=== PATIENT | female | born 1990 | race Caucasian/White ===

== ENCOUNTER 2019-03-24 15:06 | Emergency (ER) | payer OTHER ==
[2019-03-24 15:17] VITALS: BP 119/84; TEMP 99.1
[2019-03-24] MEDS ORDERED: IPRATROPIUM-ALBUTEROL 3 ML NEB INHALATION STA (15:39)
--- NOTE | 2019-03-24 15:47 | ED ---
URI HPI - General Chief Complaint: Upper Respiratory Infection Stated Complaint: Cough Time Seen by Provider: 03/24/19 15:11 Source: patient, RN notes reviewed Mode of arrival: ambulatory Limitations: no limitations - History of Present Illness Initial Comments: This is a 28-year-old female presents emergency Department chief complaint cough, congestion over the last 3 weeks. Patient states that she's had increasing shortness breath, wheezing. She states he usually comes along with a coughing fit. Patient doesn't that she is a daily smoker has no history of asthma. Denies any fever, chills, ear pain, sore throat she hasn't missed a mild nasal congestion. - Related Data Previous Rx's Medication Instructions Recorded Albuterol Sulfate [Proair Hfa] 1 - 2 puff INHALATION Q4HR PRN #1 03/24/19 inhaler Azithromycin [Zithromax Z-pack] 0 mg PO DIRECTED #1 pack 03/24/19 predniSONE 50 mg PO DAILY #5 tab 03/24/19 Allergies Allergy/AdvReac Type Severity Reaction Status Date / Time No Known Allergies Allergy Verified 03/24/19 15:13 Review of Systems ROS Statement: Those systems with pertinent positive or pertinent negative responses have been documented in the HPI. ROS Other: All systems not noted in ROS Statement are negative. Past Medical History Past Medical History: No Reported History History of Any Multi-Drug Resistant Organisms: MRSA Date of last positivie culture/infection: 2019 MDRO Source:: face Past Surgical History: No Surgical Hx Reported Past Psychological History: Anxiety, Depression Smoking Status: Current every day smoker Past Alcohol Use History: None Reported Past Drug Use History: None Reported General Exam Limitations: no limitations General appearance: alert, in no apparent distress Head exam: Present: atraumatic, normocephalic, normal inspection Eye exam: Present: normal appearance, PERRL, EOMI. Absent: scleral icterus, conjunctival injection, periorbital swelling ENT exam: Present: mucous membranes moist, TM's normal bilaterally, normal external ear exam. Absent: normal exam, normal oropharynx (Mild erythema) Neck exam: Present: normal inspection, full ROM. Absent: tenderness, meningismus, lymphadenopathy Respiratory exam: Present: wheezes. Absent: normal lung sounds bilaterally, respiratory distress, rales, rhonchi, stridor Cardiovascular Exam: Present: regular rate, normal rhythm, normal heart sounds. Absent: systolic murmur, diastolic murmur, rubs, gallop, clicks GI/Abdominal exam: Present: soft, normal bowel sounds. Absent: distended, tenderness, guarding, rebound, rigid Neurological exam: Present: alert, oriented X3 Skin exam: Present: warm, dry, intact, normal color. Absent: rash Course Vital Signs 03/24/19 15:14 Temperature 99.1 F Pulse Rate 78 Respiratory 18 Rate Blood Pressure 119/84 O2 Sat by Pulse 100 Oximetry Medical Decision Making - Medical Decision Making Chest x-rays unremarkable. Patient does have mild wheezing and is a smoker. Patient we treated for acute bronchitis. I counseled the patient for smoking cessation for greater than 3 minutes. Patient was discharged in stable condition with follow-up with PCP Disposition Clinical Impression: Acute bronchitis Disposition: HOME SELF-CARE Condition: Stable Instructions (If sedation given, give patient instructions): Acute Bronchitis (ED) Additional Instructions: Please return to the Emergency Department if symptoms worsen or any other concerns. Prescriptions: predniSONE 50 mg PO DAILY #5 tab Albuterol Sulfate [Proair Hfa] 1 - 2 puff INHALATION Q4HR PRN #1 inhaler PRN Reason: difficulty in breathing Azithromycin [Zithromax Z-pack] 0 mg PO DIRECTED #1 pack Is patient prescribed a controlled substance at d/c from ED?: No Referrals: None,Stated [Primary Care Provider] - 1-2 days Time of Disposition: 15:50
--- NOTE | 2019-03-24 15:50 | XR ---
EXAMINATION TYPE: XR chest 2V DATE OF EXAM: 03/24/2019 COMPARISON: None INDICATION: Cough shortness of breath TECHNIQUE: Frontal and lateral views of the chest are obtained. FINDINGS: The heart size is normal. The pulmonary vasculature is normal. The lungs are clear. IMPRESSION: 1. No acute pulmonary process.
[2019-03-24 16:08] VITALS: PULSE 82; RESP 16
== END 2019-03-24 16:09 | disposition home or self-care (01) ==
LOC: EC 15:06
DX: J20.9 Acute bronchitis, unspecified (principal); Z71.6 Tobacco abuse counseling; F17.200 Nicotine dependence, unspecified, uncomplicated; Z86.14 Personal history of Methicillin resistant Staphylococcus aureus infection
CPT/HCPCS: 71046; 94640; 99285; 99406

== ENCOUNTER → 2019-07-25 | Outpatient (CLI) | payer OTHER ==
[2019-07-25 12:47] LABS: Prothrombin Time 10.3 sec (9.0-12.0)
[2019-07-25 19:50] LABS: Hepatitis A Antibody IgM Non-Reactive (Non-Reactive); Hepatitis B Core IgM Non-Reactive (Non-Reactive); Hepatitis B Surface Antigen Non-Reactive (Non-Reactive); Hepatitis C IgG Antibody Reactive (Non-Reactive)
== END | disposition home or self-care (01) ==
LOC: LABWHC1 11:53
PROVIDERS: ATTEND Nurse Practitioner
DX: B18.2 Chronic viral hepatitis C (principal)
CPT/HCPCS: 36415; 80074; 81596; 82105; 84702; 85610; 87522

== ENCOUNTER → 2020-10-27 | Outpatient (CLI) | payer OTHER ==
[2020-10-28 05:44] LABS: Hepatitis B Surface Antigen Non-Reactive (Non-Reactive)
[2020-10-29 12:02] LABS: HCV Qualitative Result DETECTED (Not detected); HCV Quant Log 6.24 (<1.08)
== END | disposition home or self-care (01) ==
LOC: LABWHC1 15:03
PROVIDERS: ATTEND Nurse Practitioner
DX: B18.2 Chronic viral hepatitis C (principal)
CPT/HCPCS: 36415; 86704; 87340; 87522

== ENCOUNTER → 2020-11-09 | Outpatient (CLI) | payer OTHER ==
--- NOTE | 2020-11-09 16:41 | US ---
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 Patient stated was former drug user couple years ago. EXAM MEASUREMENTS: Liver Length: 13.6 cm Gallbladder Wall: 0.2 cm CBD: 0.2 cm Right Kidney: 9.7 x 5.7 x 4.6 cm Pancreas: wnl Liver: wnl Gallbladder: wnl Evidence for sonographic Garnica's sign: no CBD: wnl Right Kidney: No hydronephrosis or masses seen IMPRESSION: 1. Grossly unremarkable ultrasound of the liver. No gallstones. No free fluid in the right upper quad rant. No hydronephrosis or large shadowing renal calculi of the right kidney.
== END | disposition home or self-care (01) ==
LOC: RADUSWWP 08:18
PROVIDERS: ATTEND Internal Medicine Gastroenterology
DX: B18.2 Chronic viral hepatitis C (principal)
CPT/HCPCS: 76705

== ENCOUNTER → 2021-03-17 | Outpatient (CLI) | payer OTHER ==
[2021-03-17 13:19] LABS: ALT 14 U/L (4-34); AST 19 U/L (14-36); African American GFR (CKD) >90 (>60 ml/min/1.73 sqM); Albumin 3.9 g/dL (3.5-5.0); Albumin/Globulin Ratio 1.2; Alkaline Phosphatase 59 U/L (38-126); Anion Gap 9 mmol/L; Blood Urea Nitrogen 9 mg/dL (7-17); Calcium 9.3 mg/dL (8.4-10.2); Carbon Dioxide 17 mmol/L (22-30); Chloride 108 mmol/L (98-107); Globulin 3.2 g/dL; Glucose 89 mg/dL (74-99); Non-African American GFR(CKD) >90 (>60 ml/min/1.73 sqM); Potassium 4.3 mmol/L (3.5-5.1); Sodium 134 mmol/L (137-145); Total Bilirubin 0.2 mg/dL (0.2-1.3); Total Protein 7.1 g/dL (6.3-8.2)
[2021-03-17 20:36] LABS: Basophils # (A) 0.03 X 10*3/uL (0.00-0.10); Basophils % (A) 0.4 %; Eosinophils # (A) 0.11 X 10*3/uL (0.04-0.35); Eosinophils % (A) 1.3 %; HCT 42.6 % (37.2-46.3); HGB 13.7 g/dL (12.0-15.0); Lymphocytes # (A) 1.55 X 10*3/uL (0.90-5.00); Lymphocytes % (A) 18.4 %; MCH 28.4 pg (27.0-32.0); MCHC 32.2 g/dL (32.0-37.0); MCV 88.4 fL (80.0-97.0); Mean Platelet Volume 10.7 fL (9.5-12.2); Monocytes # (A) 0.87 X 10*3/uL (0.20-1.00); Monocytes % (A) 10.3 %; Neutrophils # (A) 5.85 X 10*3/uL (1.80-7.70); Neutrophils % (A) 69.2 %; Platelet Count 296 X 10*3/uL (140-440); RBC 4.82 X 10*6/uL (4.10-5.20); RDW 13.5 % (11.5-14.5); WBC 8.44 X 10*3/uL (4.50-10.00)
== END | disposition home or self-care (01) ==
LOC: LABWHC1 11:27
PROVIDERS: ATTEND Internal Medicine Gastroenterology
DX: B18.2 Chronic viral hepatitis C (principal)
CPT/HCPCS: 36415; 80053; 85025; 87522

== ENCOUNTER 2021-03-21 14:15 | Emergency (ER) | payer OTHER ==
[2021-03-21 14:40] VITALS: BP 124/76; PULSE 90; RESP 18; TEMP 99.4
--- NOTE | 2021-03-21 14:45 | ED ---
General Adult HPI - General Source: patient, RN notes reviewed Mode of arrival: ambulatory Limitations: no limitations <Jeffrey Schwartz - Last Filed: 03/21/21 14:42> <Lili Gaitan - Last Filed: 03/21/21 14:51> - General Chief complaint: Fever Stated complaint: Needs covid test Time Seen by Provider: 03/21/21 14:40 - History of Present Illness Initial comments: 30-year-old female presents to the emergency room for a chief complaint of needing a coronavirus test. Patient presents with another individual who tested positive for Covid. Patient herself denies any symptoms however would like to be tested through the emergency room today.Patient has no other complaints at this time including shortness of breath, chest pain, abdominal pain, nausea or vomiting, headache, or visual changes. (Jeffrey Schwartz) - Related Data Previous Rx's Medication Instructions Recorded Albuterol Sulfate [Proair Hfa] 1 - 2 puff INHALATION Q4HR PRN #1 03/24/19 inhaler Azithromycin [Zithromax Z-pack (6 0 mg PO DIRECTED #1 pack 03/24/19 tabs)] predniSONE 50 mg PO DAILY #5 tab 03/24/19 Allergies Allergy/AdvReac Type Severity Reaction Status Date / Time No Known Allergies Allergy Verified 03/21/21 14:40 Review of Systems ROS Other: All systems not noted in ROS Statement are negative. <Jeffrey Schwartz - Last Filed: 03/21/21 14:42> ROS Other: All systems not noted in ROS Statement are negative. <Lili Gaitan P - Last Filed: 03/21/21 14:51> ROS Statement: Those systems with pertinent positive or pertinent negative responses have been documented in the HPI. Past Medical History Past Medical History: No Reported History History of Any Multi-Drug Resistant Organisms: MRSA Date of last positivie culture/infection: 2019 MDRO Source:: face Past Surgical History: No Surgical Hx Reported, Section Past Psychological History: Anxiety, Depression Smoking Status: Vaper Past Alcohol Use History: None Reported Past Drug Use History: None Reported <Jeffrey Schwartz - Last Filed: 03/21/21 14:42> General Exam Limitations: no limitations General appearance: alert Head exam: Present: atraumatic Eye exam: Present: normal appearance, PERRL, EOMI. Absent: scleral icterus, conjunctival injection ENT exam: Present: normal exam, mucous membranes moist Neck exam: Present: normal inspection, full ROM. Absent: tenderness Respiratory exam: Absent: respiratory distress <Jeffrey Schwartz - Last Filed: 03/21/21 14:42> Course Vital Signs 03/21/21 14:38 Temperature 99.4 F Pulse Rate 90 Respiratory 18 Rate Blood Pressure 124/76 O2 Sat by Pulse 98 Oximetry Medical Decision Making <Jeffrey Schwartz - Last Filed: 03/21/21 14:42> - Medical Decision Making Vitals stable. Patient does not have any symptoms. (Jeffrey Schwartz) Disposition <Jeffrey Schwartz - Last Filed: 03/21/21 14:42> <Lili Gaitan - Last Filed: 03/21/21 14:51> Referrals: Aida Donis MD [Primary Care Provider] - 1-2 days
--- NOTE | 2021-03-21 14:56 | ED ---
General Adult HPI - General Chief complaint: Fever Stated complaint: Needs covid test Time Seen by Provider: 03/21/21 14:40 Source: patient Mode of arrival: ambulatory Limitations: no limitations - History of Present Illness Initial comments: Karin 30-year-old female presents to the emergency department today for evaluation of cold-like symptoms. Patient is been symptomatically for 2 days, her boyfriend whom she lives with tested positive and received monoclonal antibodies. Patient was advised him the ER for monoclonal antibodies. - Related Data Previous Rx's Medication Instructions Recorded Albuterol Sulfate [Proair Hfa] 1 - 2 puff INHALATION Q4HR PRN #1 03/24/19 inhaler Azithromycin [Zithromax Z-pack (6 0 mg PO DIRECTED #1 pack 03/24/19 tabs)] predniSONE 50 mg PO DAILY #5 tab 03/24/19 Allergies Allergy/AdvReac Type Severity Reaction Status Date / Time No Known Allergies Allergy Verified 03/21/21 14:40 Review of Systems ROS Statement: Those systems with pertinent positive or pertinent negative responses have been documented in the HPI. ROS Other: All systems not noted in ROS Statement are negative. Past Medical History Past Medical History: No Reported History History of Any Multi-Drug Resistant Organisms: MRSA Date of last positivie culture/infection: 2019 MDRO Source:: face Past Surgical History: No Surgical Hx Reported, Section Past Psychological History: Anxiety, Depression Smoking Status: Vaper Past Alcohol Use History: None Reported Past Drug Use History: None Reported General Exam - General Exam Comments Initial Comments: Physical Exam GENERAL: Patient is well-developed and well-nourished. Patient is nontoxic and well-hydrated and is in no distress. HENT: Normocephalic, Atraumatic. EYES: PERRL, EOMI PULMONARY: Unlabored respirations. CARDIOVASCULAR: RRR Warm and well perfused extremities ABDOMEN: Non-distended SKIN: No rashes or bruising : Deferred NEUROLOGIC: Alert and oriented Normal speech Normal gait MUSCULOSKELETAL: Moving all extremities with no apparent injury PSYCHIATRIC: No SI/HI Limitations: no limitations Course Vital Signs 03/21/21 14:38 Temperature 99.4 F Pulse Rate 90 Respiratory 18 Rate Blood Pressure 124/76 O2 Sat by Pulse 98 Oximetry Medical Decision Making - Medical Decision Making Patient was seen and evaluated, history is obtained from patient, 30-year-old female, COVID positive, BMI 28. Patient requesting monoclonal antibody she is a candidate. Cheryl bodies were ordered as well as IV fluids and Toradol. Patient does not require inpatient hospitalization or evaluation is stable for discharge home. - Lab Data Lab Results 03/21/21 Range/Units 14:40 Coronavirus (PCR) Detected A (Not Detectd) Disposition Clinical Impression: COVID-19 Disposition: HOME SELF-CARE Condition: Stable Instructions (If sedation given, give patient instructions): Kawasaki Disease (DC) Additional Instructions: The fever syndrome in children we discussed mimics Kawasaki - except it is seen and ages 0-teens after COVID, please monitor your son for any signs and bring him to the ER for any fever >3 days duration Is patient prescribed a controlled substance at d/c from ED?: No Referrals: Aida Donis MD [Primary Care Provider] - 1-2 days
[2021-03-21] MEDS ORDERED: BAMLANIVIMAB (EUA) 700 MG, ETESEVIMAB (EUA) 1,400 MG in SODIUM CHLORIDE 0.9% 50 ML IVPB ONE (15:30)
[2021-03-21] MEDS ORDERED: KETOROLAC 15 MG/ML 1 ML VIAL IVP STA (15:38)
== END 2021-03-21 17:00 | disposition home or self-care (01) ==
LOC: EC 14:15
DX: U07.1 COVID-19 (principal); F41.9 Anxiety disorder, unspecified; F32.A Depression, unspecified; F17.290 Nicotine dependence, other tobacco product, uncomplicated
CPT/HCPCS: 99283; 96374; 87635; J1885; J3490

== ENCOUNTER 2021-05-05 16:17 | Emergency (ER) | payer OTHER ==
[2021-05-05 16:40] VITALS: BP 122/81; PULSE 74; RESP 20; TEMP 98.7
[2021-05-05] MEDS ORDERED: CLINDAMYCIN 150 MG CAP PO STA (19:56)
--- NOTE | 2021-05-05 20:02 | ED ---
General Adult HPI - General Chief complaint: Skin/Abscess/Foreign Body Stated complaint: Sore on buttocks Time Seen by Provider: 05/05/21 19:28 Source: patient Mode of arrival: ambulatory Limitations: no limitations - History of Present Illness Initial comments: 21-year-old female with a past medical history of MRSA presents to the emergency room for a chief complaint of rash on buttock. Patient states that she has a rash on the left gluteal. States she had a similar rash on the right gluteal 2 weeks ago and was treated with Bactrim. States at that point there was an abscess that had to be drained as well. Patient states this time it is not like an abscess but the rash is back. She does have a history of MRSA. She denies fevers.Patient has no other complaints at this time including shortness of breath, chest pain, abdominal pain, nausea or vomiting, headache, or visual changes. - Related Data Previous Rx's Medication Instructions Recorded Albuterol Sulfate [Proair Hfa] 1 - 2 puff INHALATION Q4HR PRN #1 03/24/19 inhaler Azithromycin [Zithromax Z-pack (6 0 mg PO DIRECTED #1 pack 03/24/19 tabs)] predniSONE 50 mg PO DAILY #5 tab 03/24/19 Clindamycin [Cleocin] 300 mg PO Q8H 7 Days #42 cap 05/05/21 Mupirocin 2% Oint [Bactroban 2% 1 applic TOPICAL TID 5 Days #22 gm 05/05/21 Oint] Allergies Allergy/AdvReac Type Severity Reaction Status Date / Time No Known Allergies Allergy Verified 05/05/21 16:36 Review of Systems ROS Statement: Those systems with pertinent positive or pertinent negative responses have been documented in the HPI. ROS Other: All systems not noted in ROS Statement are negative. Past Medical History Past Medical History: No Reported History History of Any Multi-Drug Resistant Organisms: MRSA Date of last positivie culture/infection: 2019 MDRO Source:: face Past Surgical History: Section Past Psychological History: Anxiety, Depression Smoking Status: Vaper Past Alcohol Use History: None Reported Past Drug Use History: None Reported General Exam Limitations: no limitations General appearance: alert, in no apparent distress Head exam: Present: atraumatic Eye exam: Present: normal appearance, PERRL, EOMI. Absent: scleral icterus, conjunctival injection ENT exam: Present: normal exam, mucous membranes moist Neck exam: Present: normal inspection, full ROM. Absent: tenderness Respiratory exam: Present: normal lung sounds bilaterally. Absent: respiratory distress, wheezes Cardiovascular Exam: Present: regular rate, normal rhythm, normal heart sounds Skin exam: Present: other (There is a small 1 cm x 1 cm erythematous area in the mid left glute with small vesicle ) Course Vital Signs 05/05/21 16:36 Temperature 98.7 F Pulse Rate 74 Respiratory 20 Rate Blood Pressure 122/81 O2 Sat by Pulse 100 Oximetry Medical Decision Making - Medical Decision Making Patient will be treated for possible MRSA infection with clindamycin and ointment. She will need to follow up with dermatology as this is patient's second occurrence in 2 weeks. If she has any worsening symptoms she'll return here to the emergency room. Disposition Clinical Impression: Skin lesion, MRSA carrier Disposition: HOME SELF-CARE Condition: Good Instructions (If sedation given, give patient instructions): Cellulitis (ED) Additional Instructions: Please use medications as directed. Follow up with dermatology. Return to the emergency room for any worsening symptoms. Prescriptions: Mupirocin 2% Oint [Bactroban 2% Oint] 1 applic TOPICAL TID 5 Days #22 gm Clindamycin [Cleocin] 300 mg PO Q8H 7 Days #42 cap Is patient prescribed a controlled substance at d/c from ED?: No Referrals: Aida Donis MD [Primary Care Provider] - 1-2 days Ana Adair MD [STAFF PHYSICIAN] - 1-2 days Thanh Horowitz MD [REFERRING] - 1-2 days Time of Disposition: 20:00
== END 2021-05-05 20:33 | disposition home or self-care (01) ==
LOC: EC 16:17
DX: L98.9 Disorder of the skin and subcutaneous tissue, unspecified (principal); Z22.322 Carrier or suspected carrier of Methicillin resistant Staphylococcus aureus; F41.9 Anxiety disorder, unspecified; F32.A Depression, unspecified; F17.290 Nicotine dependence, other tobacco product, uncomplicated
CPT/HCPCS: 87070; 87205; 99282

== ENCOUNTER → 2021-08-02 | Outpatient (CLI) | payer OTHER ==
--- NOTE | 2021-08-02 20:24 | US ---
EXAMINATION TYPE: US thyroid st tissue head/neck DATE OF EXAM: 08/02/2021 COMPARISON: NONE CLINICAL HISTORY: R79.89 DECREASED THYROID STIMULATING HORMONE LEVEL. Abnormal blood work GLAND SIZE: Right Lobe: 6.0 x 2.1 x 1.7 cm Overall Parenchyma: heterogenous Left Lobe: 5.1 x 1.8 x 1.6 cm Overall Parenchyma: heterogeneous Isthmus Thickness: 0.60 cm NODULES RIGHT: # of nodules measured on right: 0 LEFT: # of nodules measured on left: 0 ISTHMUS: # of nodules measured in the isthmus: 0 Bilateral neck scanned, no evidence of lymphadenopathy. Markedly heterogeneous but normal sized thyroid without discrete nodule.. IMPRESSION: As above.
== END | disposition home or self-care (01) ==
LOC: RADUSWWP 16:52
PROVIDERS: ATTEND Family Medicine
DX: R79.89 Other specified abnormal findings of blood chemistry (principal)
CPT/HCPCS: 76536